=== PATIENT | female | born 1945 | race Two or more races ===

== ENCOUNTER 2017-05-11 03:06 | Emergency (ER) | payer MEDICARE, OTHER ==
[~2017-05-11] VITALS: Ht 149.9 cm; Wt 97.5 kg
[2017-05-11 03:10] VITALS: BP 187/66
[2017-05-11] MEDS ORDERED: LORazepam 0.5mg tab ORAL ONE (03:45)
--- NOTE | 2017-05-11 03:46 | Emergency Room Report ---
History of Present Illness General Chief Complaint: Dizziness Source: Patient Present Illness HPI This is a 71-year-old female with history of diabetes, hypertension anxiety. She presents with chief complaint of dizziness. She called 911 because she felt dizzy. Described it as a we're motion. [place] like the ground any give way. She has nausea and vomiting. This occur after eating a candy. The one was hanging out candy on the corner store and she got one for free. She ate half of it. He turned out to be a marijuana elbow. Patient denies any fever chills but denies any chest pain. No focal deficit. Allergies: Coded Allergies: No Known Allergies (Unverified , 05/11/17) Patient History Past Medical History: see triage record, old chart reviewed, HTN, psych hx - anxiety Past Surgical History: other Pertinent Family History: none Social History: Denies: smoking Last Menstrual Period: n/a Now: No Immunizations: other Reviewed Nursing Documentation: PMH: Agreed, PSxH: Agreed Nursing Documentation-PMH Past Medical History: No History, Except For Hx Cardiac Problems: Yes Hx Hypertension: Yes Hx Diabetes: Yes Review of Systems Eye: Denies: eye pain, blurred vision ENT: Denies: ear pain, nose congestion, throat swelling Respiratory: Denies: cough, shortness of breath Cardiovascular: Denies: chest pain, palpitations Gastrointestinal: Denies: abdominal pain, diarrhea, nausea, vomiting Musculoskeletal: Denies: back pain, joint pain Skin: Denies: rash Neurological: Denies: headache, numbness Endocrine: Denies: increased thirst, increased urine Hematologic/Lymphatic: Denies: easy bruising All Other Systems: negative except mentioned in HPI Physical Exam Vital Signs Date Time Temp Pulse Resp B/P (MAP) Pulse Ox O2 Delivery O2 Flow Rate FiO2 05/11/17 03:01 98.1 80 16 190/77 99 Room Air vitals with high blood pressure Sp02 EP Interpretation: reviewed, normal General Appearance: well appearing, no apparent distress, alert Head: normocephalic, atraumatic Eyes: bilateral eye PERRL, bilateral eye EOMI ENT: hearing grossly normal, normal pharynx Neck: full range of motion, supple, no meningismus Respiratory: chest non-tender, lungs clear, normal breath sounds Cardiovascular #1: regular rate, rhythm, no murmur Gastrointestinal: normal bowel sounds, non tender, no mass, no organomegaly, no bruit, non-distended Musculoskeletal: back normal, gait/station normal, normal range of motion Psychiatric: mood/affect normal Skin: warm/dry Medical Decision Making Diagnostic Impression: Primary Impression: Marijuana intoxication Qualified Codes: F12.920 - Cannabis use, unspecified with intoxication, uncomplicated Additional Impressions: Hypertension Qualified Codes: I10 - Essential (primary) hypertension Anxiety ER Course Patient presents with side effect of marijuana. No evidence of stroke or TIA. No evidence of end organ damage. Patient better after Ativan and Zofran. We' ll observe her to she's better. We'll discharge home at work. EKG Diagnostic Results Rate: normal Rhythm: NSR ST Segments: no acute changes Rhythm Strip Diag. Results Rhythm Strip Time: 03:45 EP Interpretation: yes Rate: 75 Rhythm: NSR, no PVC's, no ectopy Last Vital Signs Date Time Temp Pulse Resp B/P (MAP) Pulse Ox O2 Delivery O2 Flow Rate FiO2 05/11/17 03:10 98.1 82 20 187/66 96 Room Air Status: improved Disposition: HOME, SELF-CARE Condition: Stable Additional Instructions: Followup with your DrZuly in 7 days. Return if symptom worsen. MONTSERRAT SAL M.D. May 11, 2017 03:46
[2017-05-11 05:29] VITALS: BP 157/60
[2017-05-11 06:37] VITALS: BP 149/73
[2017-05-11 07:21] VITALS: BP 151/60
== END 2017-05-11 07:26 | disposition home or self-care (01) ==
LOC: EDBD 03:06 → EMR 03:42
DX: F12.920 Cannabis use, unspecified with intoxication, uncomplicated (principal); I10 Essential (primary) hypertension; F41.9 Anxiety disorder, unspecified; E11.9 Type 2 diabetes mellitus without complications
CPT/HCPCS: 99284